=== PATIENT | male | born 1995 | race Caucasian/White ===

== ENCOUNTER 2018-03-06 21:45 | Emergency (ER) | payer BC ==
[2018-03-06] MEDS ORDERED: predniSONE 20 MG TABLET PO STA (22:04)
--- NOTE | 2018-03-06 22:06 | ED Physician Documentation ---
History of Present Illness - Stated complaint Stated Complaint: RASH - Chief complaint Chief Complaint: General - History obtained from History obtained from: Patient, Family (mom) - History of Present Illness Timing: Other (He had his wisdom teeth out 2 days ago. He was on clindamycin but stopped because he developed a itchy rash diffusely. He has had a similar reaction to amoxicillin in the past. There is no shortness of breath with it.) Review of Systems Ten Systems: 10 systems reviewed and negative Constitutional: denies: Fever, Chills Throat: reports: Dental pain / toothache (improving) Cardiac: reports: Reviewed and negative Respiratory: reports: Reviewed and negative PD PAST MEDICAL HISTORY - Present Medications Home Medications: Ambulatory Orders Medication Instructions Recorded Confirmed predniSONE [Deltasone] 60 mg PO DAILY 5 Days tablet 03/06/18 - Allergies Allergies/Adverse Reactions: Allergies Allergy/AdvReac Type Severity Reaction Status Date / Time amoxicillin AdvReac Unknown Verified 03/06/18 21:59 PD ED PE NORMAL - Vitals Vital signs reviewed: Yes - General General: Alert and oriented X 3, No acute distress - HEENT HEENT: Other (Mild trismus, surgical sites healing well without active infection. No angioedema.) - Neck Neck: Supple, no meningeal sign, No bony TTP - Cardiac Cardiac: RRR, No murmur - Respiratory Respiratory: No respiratory distress, Clear bilaterally - Abdomen Abdomen: Soft, Non tender - Derm Derm: Other (On the trunk he has a pretty significant rash, macular and diffuse consistent with fixed drug eruption. On the lower extremities he has the same but also some purplish discoloration and potentially some petechia especially on the medial sides of the legs.) - Neuro Neuro: Alert and oriented X 3, Normal speech Results - Vitals Vitals: Vital Signs - 24 hr 03/06/18 21:57 Temperature 36.5 C Heart Rate 79 Respiratory 17 Rate Blood Pressure 120/56 L O2 Saturation 100 Oxygen O2 Source Room air - Labs Labs: Laboratory Tests 03/06/18 22:25 WBC 7.4 RBC 4.38 L Hgb 13.5 L Hct 40.3 L MCV 92.0 MCH 30.8 MCHC 33.4 RDW 12.0 Plt Count 261 MPV 6.9 L Neut # (Auto) 5.5 Lymph # (Auto) 0.9 L [place] # (Auto) 0.5 Eos # (Auto) 0.4 Baso # (Auto) 0.0 Absolute Nucleated RBC 0.02 Nucleated RBC % 0.3 Departure - Departure Disposition: 01 Home, Self Care Clinical Impression: Drug eruption Condition: Good Record reviewed to determine appropriate education?: Yes Instructions: ED Drug React Allergic Prescriptions: predniSONE [Deltasone] 60 mg PO DAILY 5 Days tablet Comments: You can continue conservative measures for the itching including Benadryl and calamine lotion or oatmeal baths. Should get better within the next couple of days with the steroid as well.
[2018-03-06 22:37] LABS: BASOPHILS % (AUTO) 0.1 %; EOSINOPHILS # (AUTO) 0.4 10^3/uL (0.0-0.7); EOSINOPHILS % (AUTO) 5.5 %; HGB - HEMOGLOBIN 13.5 g/dL (14.0-18.0); LYMPHOCYTES # (AUTO) 0.9 10^3/uL (1.5-3.5); LYMPHOCYTES % (AUTO) 12.8 %; MEAN CORPUSCULAR HEMOGLOBIN 30.8 pg (27.0-31.0); MEAN CORPUSCULAR HGB CONC 33.4 g/dL (32.0-36.0); MEAN PLATELET VOLUME 6.9 fL (7.4-11.4); MONOCYTES # (AUTO) 0.5 10^3/uL (0.0-1.0); MONOCYTES % (AUTO) 6.9 %; NEUTROPHILS # (AUTO) 5.5 10^3/uL (1.5-6.6); NEUTROPHILS % (AUTO) 74.7 %; PLT - PLATELET COUNT 261 10^3/uL (130-450); RED BLOOD COUNT 4.38 10^6/uL (4.70-6.10); WHITE BLOOD COUNT 7.4 x10^3/uL (4.8-10.8)
[2018-03-06 23:14] VITALS: BP 122/70
== END 2018-03-06 23:04 | disposition home or self-care (01) ==
LOC: ED 21:45
DX: L27.0 Generalized skin eruption due to drugs and medicaments taken internally (principal); T36.8X5A Adverse effect of other systemic antibiotics, initial encounter
CPT/HCPCS: 36415; 85025; 99283; J7512